=== PATIENT | female | born 1990 | race Caucasian/White ===

== ENCOUNTER 2018-07-13 12:21 | Emergency (ER) | payer OTHER ==
[~2018-07-13] VITALS: Ht 165.1 cm; Wt 58.6 kg
[2018-07-13 12:43] VITALS: Ht 165.1 cm; Wt 58.6 kg
[2018-07-13 16:33] VITALS: BP 120/65
== END 2018-07-13 16:33 | disposition home or self-care (01) ==
LOC: ED 12:21
DX: O23.592 Infection of other part of genital tract in pregnancy, second trimester (principal); N76.0 Acute vaginitis; O23.42 Unspecified infection of urinary tract in pregnancy, second trimester; Z3A.15 15 weeks gestation of pregnancy
CPT/HCPCS: 87491; 87591

== ENCOUNTER 2018-09-19 00:45 | Emergency (ER) | payer OTHER ==
[~2018-09-19] VITALS: Ht 167.6 cm; Wt 62.6 kg
[2018-09-19 00:50] VITALS: Ht 167.6 cm; Wt 62.6 kg
[2018-09-19 02:17] VITALS: BP 107/67
== END 2018-09-19 02:17 | disposition home or self-care (01) ==
LOC: ED 00:45
DX: O26.892 Other specified pregnancy related conditions, second trimester (principal); J03.90 Acute tonsillitis, unspecified; Z3A.25 25 weeks gestation of pregnancy

== ENCOUNTER 2018-10-27 04:57 | Emergency (ER) | payer OTHER ==
[~2018-10-27] VITALS: Ht 165.1 cm; Wt 64.0 kg
[2018-10-27 05:04] VITALS: BP 118/72; Ht 165.1 cm; Wt 64.0 kg
== END 2018-10-27 05:04 | disposition left against medical advice (07) ==
LOC: ED 04:57
DX: Z53.21 Procedure and treatment not carried out due to patient leaving prior to being seen by health care provider (principal)

== ENCOUNTER 2020-04-26 21:17 | Emergency (ER) | payer OTHER, SELFPAY ==
[~2020-04-26] VITALS: Ht 165.1 cm; Wt 55.3 kg
[2020-04-26 21:19] VITALS: Ht 165.1 cm; Wt 55.3 kg
[2020-04-26 22:05] VITALS: BP 121/81
== END 2020-04-26 22:05 | disposition home or self-care (01) ==
LOC: ED 21:17
DX: B34.9 Viral infection, unspecified (principal); Z20.828 Contact with and (suspected) exposure to other viral communicable diseases
CPT/HCPCS: U0003